=== PATIENT | male | born 1970 | race Hispanic/Latino ===

== ENCOUNTER 2020-05-03 06:19 | Day surgery (SDC) | payer BC ==
[2020-04-28 15:41] LABS: Absolute Lymphocytes (CBC) 1.2 K/uL (0.7-4.9); Basophils % 0.8 % (0-1.3); Hematocrit 46.7 % (39.6-49.0); Lymphocytes % 21.1 % (15.3-44.8); MPV 10.3 fL (7.6-11.3)
[2020-04-28 16:03] LABS: Albumin 3.8 g/dL (3.4-5.0); Bilirubin Direct 0.2 mg/dL (0-0.2); Bilirubin Total 0.7 mg/dL (0.2-1.0); Potassium 3.6 mmol/L (3.5-5.1); Protein, Total 7.2 g/dL (6.4-8.2)
--- NOTE | 2020-04-28 16:32 | RAD REPORT ---
EXAM DESCRIPTION: RAD - Chest Pa And Lat (2 Views) - 04/28/2020 3:39 pm CLINICAL HISTORY: PRE OP COMPARISON: None TECHNIQUE: Frontal and lateral views of the chest were obtained. FINDINGS: The lungs are clear. Heart size is normal and central vasculature is within normal limit s. No pleural effusion or pneumothorax seen. No acute bony finding noted. No aortic abnormality. IMPRESSION: No acute cardiopulmonary process.
[2020-05-03] MEDS ORDERED: CEFAZOLIN/SWI 1gm 0 GM/0 ML SYR ONE (06:46)
[2020-05-03] MEDS ORDERED: Ringers Lactate 1,000 ML IV ONE (06:46)
[2020-05-03] MEDS ORDERED: FENTANYL CITR 100 MCG/2 ML ONE (07:17)
[2020-05-03] MEDS ORDERED: dexAMETHasone 10 MG/ML VIAL ONE (07:17)
[2020-05-03] MEDS ORDERED: MIDAZOLAM HCL 2 MG/2 ML INJ ONE (07:17)
[2020-05-03] MEDS ORDERED: propofoL 200 MG/20 ML VIAL IV ONE (07:17)
[2020-05-03] MEDS ORDERED: ROCURONIUM 50 MG/5 ML VIAL IV ONE (07:18)
[2020-05-03] MEDS ORDERED: LIDOCAINE 2% MPF 5 ML VIAL ONE (07:18)
[2020-05-03] MEDS ORDERED: CEFOXITIN/SWI 1gm 1 GM/10 ML SYR ONE (07:33)
[2020-05-03] MEDS ORDERED: KETOROLAC 30 MG/ML INJ ONE (08:23)
--- NOTE | 2020-05-03 08:25 | P.BOP ---
Preoperative diagnosis: symptomatic cholelithiasis, RUQ abd pain, acute cholecystitis Postoperative diagnosis: same Primary procedure: Laparoscopic cholecystectomy Welding Inspector: LILA MIR (SKINNING MACHINE FEEDER) Estimated blood loss: <10cc Specimen: gb Findings: as above Anesthesia: General Complications: None Transferred to: Recovery Room Condition: Good
[2020-05-03] MEDS ORDERED: GLYCOPYRROLATE 0.2 MG/ML SYR ONE ×2 (08:37)
[2020-05-03] MEDS ORDERED: NEOSTIGMINE 1 MG/ML -5 ML ONE (08:37)
[2020-05-03] MEDS: MEPERIDINE HCL 50 MG/ML ONE ×3 (08:55→09:05)
[2020-05-03] MEDS ORDERED: ONDANSETRON 4 MG/2 ML VIAL ONE (08:58)
[2020-05-03 09:07] VITALS: O2SAT 97
[2020-05-03] MEDS ORDERED: CODEINE 30MG/APAP 300MG TAB ONE (09:47)
[2020-05-03 09:50] VITALS: BP 114/64; TEMP 96.7
--- NOTE | 2020-05-03 10:23 | OP ---
Date of Procedure: 05/03/2020 Surgeon: Cristhian Regalado MD Commis Chef: SHALOM Parham. Preoperative Diagnoses: Symptomatic cholelithiasis, right upper quadrant abdominal pain, acute balwinder cystitis. Postoperative Diagnoses: Symptomatic cholelithiasis, right upper quadrant abdominal pain, acute chol ecystitis. Procedure: Laparoscopic cholecystectomy. Anesthesia: General plus local. Specimen: Gallbladder. Indication: This is the case of a 50-year-old patient diagnosed with above. Fully explained the polly efits, alternatives, and risks of laparoscopic possible open cholecystectomy, which include, but not limited to infection, bleeding, damage to adjacent structures, anesthesia complication, choledocholit hiasis, bile leak, pancreatitis, MD, and even . He also understands this may not relieve any sy mptoms. He might need more than one surgical intervention. He understood, signed the consent. Procedure In Detail: Patient was brought to the operating room and placed in supine position. Anest hesia was done without complication. Abdominal area was prepped and draped in usual sterile fashion. Marcaine 0.5% was injected for local anesthetic followed by sharp incision of the skin in the infra umbilical region. Incision was carried down to fascia, which was opened under direct vision. Perito neum was encountered, opened under direct vision. Vicryl #1 was placed inside the fascia. Tamanna tr ocar was carefully introduced. No bleeding was obtained. I placed 3 more trocars 5 mm each one of t hem in the right upper quadrant under direct visualization. This allowed me to place a grasper in th e fundus of the gallbladder, another grasper in the infundibulum, retracting the gallbladder in the i nferolateral fashion exposing the triangle of Calot obtaining critical view. Cystic duct and cystic artery were clearly isolated free circumferentially and a connection between those and the gallbladde r was clearly identified. I proceeded to ligate those by using at least 3 clips proximal and 1 clip distal, ligation in middle, and same was done with the cystic artery. A small little branch of the c ystic artery was also ligated. The hepatic arteries and common bile duct were protected at all times . The gallbladder was removed from the liver using Bovie cauterizer and removed from abdominal cavit y using EndoCatch through umbilical incision. The area was inspected once again. No bile leak. No bleeding. Gallbladder fossa with no bleeding. At that moment, I proceeded to remove the trocars und er direct vision, deflated pneumoperitoneum, closed the fascia with #1 Vicryl, irrigated the subcutan eous tissue, closed that with 3-0 chromic and skin in a subcuticular fashion with Steri-Strips on top . Sponge count, instrument count were correct. The patient tolerated the procedure well. Patient w as sent to Recovery in stable condition. Diagnosis: Symptomatic cholelithiasis, acute cholecystitis right upper quadrant abdominal pain. Procedure: Laparoscopic cholecystectomy. Disposition: Home. Activity: As tolerated. No heavy lifting. Plan: Follow up in my office in 1 week. Call for appointment at [phone]. Keep area dry for 48 hours , then may shower. Keep Steri-Strips intact. Medications: Include Tylenol No. 3 q.4 hours p.r.n. pain, Zofran p.o. q.6 p.r.n. nausea, Bactrim DS p.o. b.i.d. LINDSEY/TIFF Voice ID: [id number] Report ID: [id number]
--- NOTE | 2020-05-03 14:50 | DS ---
Date of Discharge: 05/03/2020 Diagnoses: Symptomatic cholelithiasis, acute cholecystitis, right upper quadrant abdominal pain. Procedure: Laparoscopic cholecystectomy. Disposition: Home. Activity: As tolerated. No heavy lifting. Plan: Follow up in my office in 1 week. Call for appointment [phone]. Keep area dry for 48 hours, then may shower. Keep Steri-Strips intact. Medications: Include Tylenol No. 3 q.4 hours p.r.n. pain, Zofran p.o. q.6 p.r.n. nausea, Bactrim DS p.o. b.i.d. LINDSEY/TIFF Voice ID: [id number] Report ID: [id number]
--- NOTE | 2020-05-03 14:50 | OP ---
Date of Procedure: 05/03/2020 Surgeon: Cristhian Regalado MD Farm Mechanic Apprentice: SHALOM Parham. Preoperative Diagnoses: Symptomatic cholelithiasis, right upper quadrant abdominal pain, acute balwinder cystitis. Postoperative Diagnoses: Symptomatic cholelithiasis, right upper quadrant abdominal pain, acute chol ecystitis. Procedure: Laparoscopic cholecystectomy. Anesthesia: General plus local. Specimen: Gallbladder. Indication: This is the case of a 50-year-old patient diagnosed with above. Fully explained the polly efits, alternatives, and risks of laparoscopic possible open cholecystectomy, which include, but not limited to infection, bleeding, damage to adjacent structures, anesthesia complication, choledocholit hiasis, bile leak, pancreatitis, [place], and even . He also understands this may not relieve any sy mptoms. He might need more than one surgical intervention. He understood, signed the consent. Procedure In Detail: Patient was brought to the operating room and placed in supine position. Anest hesia was done without complication. Abdominal area was prepped and draped in usual sterile fashion. Marcaine 0.5% was injected for local anesthetic followed by sharp incision of the skin in the infra umbilical region. Incision was carried down to fascia, which was opened under direct vision. Perito neum was encountered, opened under direct vision. Vicryl #1 was placed inside the fascia. Tamanna tr ocar was carefully introduced. No bleeding was obtained. I placed 3 more trocars 5 mm each one of t hem in the right upper quadrant under direct visualization. This allowed me to place a grasper in th e fundus of the gallbladder, another grasper in the infundibulum, retracting the gallbladder in the i nferolateral fashion exposing the triangle of Calot obtaining critical view. Cystic duct and cystic artery were clearly isolated free circumferentially and a connection between those and the gallbladde r was clearly identified. I proceeded to ligate those by using at least 3 clips proximal and 1 clip distal, ligation in middle, and same was done with the cystic artery. A small little branch of the c ystic artery was also ligated. The hepatic arteries and common bile duct were protected at all times . The gallbladder was removed from the liver using Bovie cauterizer and removed from abdominal cavit y using EndoCatch through umbilical incision. The area was inspected once again. No bile leak. No bleeding. Gallbladder fossa with no bleeding. At that moment, I proceeded to remove the trocars und er direct vision, deflated pneumoperitoneum, closed the fascia with #1 Vicryl, irrigated the subcutan eous tissue, closed that with 3-0 chromic and skin in a subcuticular fashion with Steri-Strips on top . Sponge count, instrument count were correct. The patient tolerated the procedure well. Patient w as sent to Recovery in stable condition. LINDSEY/MODL Voice ID: [id number] Report ID: [id number]
== END 2020-05-03 10:12 | disposition home or self-care (01) ==
LOC: OR 06:19
PROVIDERS: ATTEND Surgery
PROC: 0FT44ZZ Resection of Gallbladder, Percutaneous Endoscopic Approach (ICD-10-PCS; principal; 2020-05-03 07:30)
DX: K80.10 Calculus of gallbladder with chronic cholecystitis without obstruction (principal); K59.00 Constipation, unspecified; K40.90 Unilateral inguinal hernia, without obstruction or gangrene, not specified as recurrent; Z20.828 Contact with and (suspected) exposure to other viral communicable diseases
CPT/HCPCS: 93005; 85025; 80048; 36415; 82150; 80076; 88304; 83690; 71046; 47562; U0002; J2704; J2250; J3010; J1100; J2175; J2710; J7120; J2405; J0690